=== PATIENT | male | born 1955 | race Caucasian/White ===

== ENCOUNTER 2019-09-02 05:55 | Observation (INO) ==
[2019-09-02] MEDS ORDERED: LISINOPRIL 40 MG TAB PO STA (06:26)
[2019-09-02] MEDS ORDERED: ASPIRIN 81 MG CHEW PO STA (06:26)
[2019-09-02] MEDS ORDERED: AMLODIPINE BESYLATE 5 MG TAB PO ONE (06:26)
[2019-09-02] MEDS ORDERED: NITROGLYCERIN SL 0.4 MG/TAB TAB SL PRN (06:38)
--- NOTE | 2019-09-02 06:52 | XRay Report ---
XR chest 1V portable CLINICAL HISTORY: Atypical chest pain COMPARISON STUDY: 08/02/2014 FINDINGS: The cardiac and mediastinal contours are normal. There is no evidence of focal pulmonary co nsolidation. There is no evidence of failure. No pleural effusions are visualized.[ IMPRESSION: No active disease in the chest. Electronically signed by: Dominick Bobby M.D. 09/02/2019 6:50 AM
[2019-09-02 07:02] LABS: Basophils # (auto) 0.01 K/uL (0-0.2); Basophils % (auto) 0.2 %; Eosinophils # (auto) 0.07 K/uL (0-0.5); Eosinophils % (auto) 1.4 %; Hematocrit (blood only) 43.7 % (42-52); Hemoglobin 14.8 g/dL (14.0-18.0); Immature Granulocytes # (auto) 0.02 K/uL (0.00-0.02); Immature Granulocytes % (auto) 0.4 %; Lymphocytes # (auto) 0.71 K/uL (1.2-3.4); Lymphocytes % (auto) 13.7 %; Mean Corpuscular Hemoglobin 31.3 pg (25-34); Mean Corpuscular Hgb Conc 33.9 g/dL (32-36); Mean Corpuscular Volume 92.4 fL (80-100); Mean Platelet Volume 10.4 fL (7.4-10.4); Monocytes # (auto) 0.46 K/uL (0.11-0.59); Monocytes % (auto) 8.9 %; Neutrophils # (auto) 3.91 K/uL (1.4-6.5); Neutrophils % (auto) 75.4 %; Platelet Count 240 K/uL (130-400); RDW Coefficient of Variation 13.1 % (11.5-14.5); RDW Standard Deviation 44.1 fL (36.4-46.3); Red Blood Count 4.73 M/uL (4.7-6.1); White Blood Count 5.18 K/uL (4.8-10.8)
[2019-09-02 07:19] LABS: Alanine Aminotransferase 29 U/L (12-78); Albumin Level 3.9 gm/dl (3.4-5.0); Aspartate Aminotransferase 16 U/L (15-37); BUN Creatinine Ratio 20.3 (10-20); Blood Urea Nitrogen 17 mg/dl (7-18); Calcium 8.8 mg/dl (8.5-10.1); Carbon Dioxide 28 mmol/L (21-32); Chloride 105 mmol/L (98-107); Creatinine Clr Calc Pharmacy 99.2 ml/min; Est GFR (African American) 108.3; Est GFR (Non-African American) 93.5; Glucose 90 mg/dl (70-99); Lipase 134 U/L (73-393); Potassium 3.6 mmol/L (3.5-5.1); Sodium 138 mmol/L (136-145)
[2019-09-02 07:24] LABS: Alkaline Phosphatase 66 U/L (45-117); Bilirubin,Total 0.5 mg/dl (0.2-1); Creatine Kinase 169 U/L (39-308); Creatine Kinase MB 6.6 ng/ml (0.5-3.6); Globulin 3.9 gm/dl (2.5-4.0); Total Protein 7.8 gm/dl (6.4-8.2); Troponin I < 0.015 ng/ml (0-0.045)
--- NOTE | 2019-09-02 07:53 | Emergency Department Note ---
General (ED) Blank Date of Service September 02, 2019 I attest that attended to the care of this patient in conjunction with Dr. Michel and agree with the assessment and plan in their note. Resident Activity Tracking Resident Involvement: Resident Care Provided Care Provided: Adult ED
--- NOTE | 2019-09-02 08:15 | History & Physical Report ---
Date of Service September 02, 2019 Assessment & Plan (1) Chest pain: New onset chest pain today while performing light activity. Chest pain relieved by nitroglycerin. No acute EKG changes. First troponin normal. Multiple risk factors for ischemic heart disease- hypertension, dyslipidemia, prediabetes. Check repeat troponin in 6 hours. Continue aspirin. Discuss evaluation further with Cardiology. (2) Hypertension: Hypertension treated with amlodipine and lisinopril. Initial blood pressure in ED was 179/84. Patient received his morning doses of amlodipine and lisinopril in the ED. Follow and titrate therapy as necessary. (3) Dyslipidemia: Check fasting lipid profile. Continue atorvastatin. (4) Prediabetes: History of prediabetes. Fasting glucose this morning 90. Follow. (5) DVT prophylaxis: Patient is low risk for VTE per IMPROVE Risk Assessment Model (risk less than 1.5%). VTE prophylaxis, therefore, is not indicated. Ambulate. (6) Discharge planning issues: Anticipated discharge to home. Family Medicine follow-up with Dr. Annamaria Mae. History of Present Illness Primary Care Provider: Annamaria Rudolph DO 63-year-old male followed by Dr. Annamaria Rudolph for Family Medicine. History of hypertension, dyslipidemia, and prediabetes. Upon awakening this morning at 4 AM he felt a little bit weak and lightheaded. He proceeded with his morning routine, including doing some chores in the barn. Developed some left-sided chest pain while doing his chores. Pain described as a tightness that did not radiate. Intensity rated as 1/10. No associated dyspnea, diaphoresis, nausea, vomiting. The chest pain persisted, so he came to the ED for evaluation. In the ED he received 1 dose of sublingual nitroglycerin with relief of symptoms in about 10 minutes. Pain-free at time of my assessment. Blood pressures were elevated in the ED, so he received his usual morning doses of amlodipine and lisinopril. Patient is physically active and before today never had any chest pain or dyspnea associated with exertion. Risk factors for ischemic heart disease include hypertension, dyslipidemia, prediabetes. He is a non-smoker. No family history of early coronary disease. Allergies Allergy/AdvReac Type Severity Reaction Status Date / Time No Known Allergies Allergy Unverified 09/02/19 06:22 Home Medications Home Medications Medication Instructions Recorded Confirmed Type amlodipine 10 mg PO DAILY 09/02/19 09/02/19 History aspirin 81 mg PO DAILY 09/02/19 09/02/19 History atorvastatin 20 mg PO DAILY 09/02/19 09/02/19 History lisinopril 40 mg PO DAILY 09/02/19 09/02/19 History Past Med/Surg History Medical History Diverticular disease of colon (Chronic) Colon polyp (Chronic) adenomatous Dyslipidemia (Chronic) Prediabetes (Chronic) Hypertension (Chronic) HTN (hypertension) (Chronic) Lumbar contusion (Acute) Renal colic on left side (Acute) 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) Uvulitis (Acute) Uvulitis (Acute) Surgical History Status post inguinal hernia repair (Chronic) Status post right knee replacement (Chronic) Family History Father Colorectal cancer Social History Preferred Language: Kenyan Communication Ability: Effective Needle Grader Required: No Beliefs That Will Affect Care: None Current Living Situation: Spouse Other Information That Helps Us Care for You: No Feels Safe at Home: Yes Safety Concerns: Feels Safe At This Time Smoking Status: Never smoker Hx Alcohol Use: No Hx Substance Use: No Review of Systems Constitutional: no fever and no weight loss Eyes: no diplopia and no worsening vision Ear, Nose, Mouth, Throat: no nasal congestion, no sinus pain/pressure and no sore throat Respiratory: no cough and no dyspnea Cardiovascular: as per Subjective / HPI Gastrointestinal: no nausea, no vomiting, no constipation, no diarrhea/loose stools, no blood in stools and no melena Musculoskeletal: + joint pain (knee) Integumentary: no rash and no new lesions Neurologic: no headache(s) Endocrine: no polydipsia and no polyuria Hematologic / Lymphatic: + easy bruising; no easy bleeding and no lymphadenopathy Physical Exam Constitutional: WD/WN, vitals as above no acute distress Eyes: PERRL, conjunctivae normal, anicteric sclerae ENMT: external ear and nose normal, oropharynx normal Neck: trachea midline, no thyromegaly Respiratory: normal respiratory effort, lungs clear to auscultation Cardiovascular: Rate/Rhythm: regular rate Heart Sounds: + gallop (s4) and + murmur (I/ sys murmur at base); no cardiac rub Vessels: normal peripheral pulses and normal carotid upstroke; no JVD Extremities: normal capillary refill; no calf tenderness and no edema Gastrointestinal (Abdomen): normal bowel sounds, soft, nontender, no hepatosplenomegaly Musculoskeletal: Head/Neck/Chest: neck supple Extremities: strength 5/5 throughout; no cyanosis and no clubbing Skin: no rashes, warm and dry Neurologic: PERRL, EOMI no facial palsy no dysarthria or aphasia patellar DTR's 2/2 bilat Psychiatric: Orientation: alert and oriented x 3 Affect: euthymic affect Lymphatic: no cervical lymphadenopathy Results & Data Vital Signs (Past 12 Hours) Vital Signs Temp Pulse Pulse Resp BP BP Pulse Ox 09/02/19 07:27 65 20 124/71 95 09/02/19 06:53 73 18 171/83 H 97 09/02/19 06:01 36.8 C 83 16 179/84 H 99 Laboratory Results Laboratory Results - last 24 hr 09/02/19 09/02/19 09/02/19 06:31 06:43 06:43 WBC 5.18 RBC 4.73 Hgb 14.8 Hct 43.7 MCV 92.4 MCH 31.3 MCHC 33.9 RDW Std Deviation 44.1 RDW Coeff of Kusum 13.1 Plt Count 240 MPV 10.4 Immature Gran % (Auto) 0.4 Neut % (Auto) 75.4 Lymph % (Auto) 13.7 [place] % (Auto) 8.9 Eos % (Auto) 1.4 Baso % (Auto) 0.2 Immature Gran # (Auto) 0.02 Neut # (Auto) 3.91 Lymph # (Auto) 0.71 L [place] # (Auto) 0.46 Eos # (Auto) 0.07 Baso # (Auto) 0.01 Sodium 138 Potassium 3.6 Chloride 105 Carbon Dioxide 28 Anion Gap 5.0 BUN 17 Creatinine 0.82 Est Cr Clr Drug Dosing 99.2 Est GFR ( Amer) 108.3 Est GFR (Non-Af Amer) 93.5 BUN/Creatinine Ratio 20.3 H Glucose 90 POC Glucose 111 H Calcium 8.8 Total Bilirubin 0.5 AST 16 ALT 29 Alkaline Phosphatase 66 Total Creatine Kinase 169 CK-MB (CK-2) 6.6 H CK/CKMB % Calc 3.9 H Troponin I < 0.015 Total Protein 7.8 Albumin 3.9 Globulin 3.9 Albumin/Globulin Ratio 1.0 Lipase 134 Diagnostic Findings Chest x-ray reviewed by the undersigned and formally interpreted by Radiology. No cardiomegaly, infiltrates, effusions, CHF. ECG Additional Comments: EKG performed at 0637 reviewed and demonstrated normal sinus rhythm at 70/minute, intraventricular conduction delay, no acute changes. Code Status & VTE Plan Code Status Full code. VTE Prophylaxis Plan VTE Prophylaxis will be ordered: No Reason for no VTE drug order: Treatment not indicated Reason for no VTE mechanical prophylaxis: Treatment not tolerated
[2019-09-02] MEDS ORDERED: ACETAMINOPHEN 325 MG TAB PO PRN (08:59)
[2019-09-02 10:06] LABS: Chol HDL Ratio 2; Cholesterol 128 mg/dl (0-200); HDL Cholesterol 55 mg/dl; LDL Cholesterol Calculated 64 mg/dl; Triglycerides 47 mg/dl (0-150); VLDL Cholesterol 9 mg/dl
[2019-09-02] MEDS ORDERED: CARVEDILOL 3.125 MG TAB PO ONE (13:51)
--- NOTE | 2019-09-02 14:34 | Emergency Department Note ---
Entered by Chad Chaparro acting as a scribe for History of Present Illness General Chief complaint: Headache Stated complaint: HEADACHE,FEEL HOT,DIZZY Time Seen by Provider: 09/02/19 06:26 Source: patient History of Present Illness Provider complaint: Dizziness Onset (ago): hour(s) (This morning) Location: head Radiation: non-radiation Pain Consistency: + other (Episodic) Maximum Pain Intensity: 1 Current Pain Intensity: 1 Associated symptoms: + chest pain and + nausea/vomiting (No vomiting); no fever/chills and no shortness of breath The patient is a 63 year old male who presents to the Emergency Room with complaints of an episode of dizziness that occurred this morning around 04:00. The patient states he also had a mild headache at the time that he rates a 1/10. The patient adds that he then became anxious and developed a slight left sided chest discomfort that does not radiates anywhere. The patient adds that nothing makes the patient better or worse. The patient also endorses some intermittent nausea. Currently the patient is no longer dizzy but still has a very mild headache and chest pain. The patient denies any neck pain, fevers, chills, or shortness of breath. The patient recalls that he took all of his blood pressure medications this morning. Home Medications Home Medications Medication Instructions Recorded Confirmed Type amlodipine 10 mg PO DAILY 09/02/19 09/02/19 History aspirin 81 mg PO DAILY 09/02/19 09/02/19 History atorvastatin 20 mg PO DAILY 09/02/19 09/02/19 History lisinopril 40 mg PO DAILY 09/02/19 09/02/19 History Allergies Allergy/AdvReac Type Severity Reaction Status Date / Time No Known Allergies Allergy Unverified 09/02/19 06:22 Past Med/Surg History Medical History Diverticular disease of colon (Chronic) Colon polyp (Chronic) adenomatous Dyslipidemia (Chronic) Prediabetes (Chronic) Hypertension (Chronic) HTN (hypertension) (Chronic) Lumbar contusion (Acute) Renal colic on left side (Acute) 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) Uvulitis (Acute) Uvulitis (Acute) Surgical History Status post inguinal hernia repair (Chronic) Status post right knee replacement (Chronic) Family History Father Colorectal cancer Social History Preferred Language: Turkish Communication Ability: Effective Shoe Stitcher Odd Required: No Beliefs That Will Affect Care: None Current Living Situation: Spouse Other Information That Helps Us Care for You: No Feels Safe at Home: Yes Safety Concerns: Feels Safe At This Time Smoking Status: Never smoker Hx Alcohol Use: No Hx Substance Use: No Review of Systems See HPI for pertinent positives & negatives. and A total of 10 systems reviewed and were otherwise negative Physical Exam Vital Signs Vital Signs - 24 hr 09/02/19 06:01 09/02/19 06:53 09/02/19 07:27 Temperature 36.8 C Temperature Source Oral Sepsis Recent Fever Within 48 Hours No Sepsis Action Taken by Nursing No Action Required Pulse Rate 83 Pulse Rate [Bilateral] 73 65 Pulse Rhythm [Bilateral] Regular Regular Pulse Strength [Bilateral] Normal Normal Respiratory Rate 16 18 20 Respiratory Effort / Characteristics Non-Labored Spontaneous Non-Labored Spontaneous Non-Labored Spontaneous Respiratory Depth Normal Normal Normal Respiratory Pattern Regular Regular Regular Blood Pressure 179/84 H Blood Pressure [Left Arm] 171/83 H 124/71 Blood Pressure Mean 115 Blood Pressure Mean [Left Arm] 112 88 Blood Pressure Position Sitting Blood Pressure Position [Left Arm] Lying Sitting Pulse Oximetry 99 97 95 Oxygen Delivery Method Room Air Room Air Room Air GENERAL: Awake, alert, well-appearing, in no distress HENT: Normocephalic, atraumatic. Oropharynx unremarkable. EYES: Normal conjunctiva. Sclera non-icteric. NECK: Supple. No nuchal rigidity. FROM. No masses. RESPIRATORY: Clear to auscultation. No wheezes. No rales. Normal respiratory effort. CARDIAC: Normal rate. Normal rhythm. No murmurs. No rubs. Extremities warm and well perfused. Pulses equal. No JVD. GI: Soft, non-distended. No tenderness to palpation. No rebound or guarding. No masses. RECTAL: Deferred. MUSCULOSKELETAL: Atraumatic. Chest examination reveals no tenderness. The back is symmetrical on inspection without obvious abnormality. There is no CVA tenderness to palpation. No joint edema. LOWER EXTREMITIES: Calves are equal size bilaterally and non-tender. No edema. No discoloration. NEURO: Normal sensorium. No sensory or motor deficits noted. Course 0620: Past medical records reviewed. The patient was evaluated in room B03B, and a complete history and physical examination were performed. 0710: I reevaluated the patient and updated on the treatment plan. He is agreeable with the plan. 0735: I spoke to Dr. Harrison Ricks Hospitalist about the patient's case. He is going to accept the patient for further evaluation. Consultations Consultation #1: I spoke to Dr. Harrison Neri about the patient's case. He is going to accept the patient for further evaluation. Time: 07:35 Administered Medications Nitroglycerin (Nitrostat) 0.4 mg SL PRN PRN PRN Reason: Chest Pain Stop: 10/02/19 06:37 Last Admin: 09/02/19 06:51 Dose: 0.4 mg Documented by: [id number] Discontinued Medications Amlodipine Besylate (Norvasc) 10 mg PO NOW ONE Stop: 09/02/19 06:27 Last Admin: 09/02/19 06:56 Dose: Not Given Documented by: [id number] Aspirin (Aspirin Chew) 81 mg PO NOW STA Stop: 09/02/19 06:27 Last Admin: 09/02/19 06:50 Dose: 81 mg Documented by: [id number] Carvedilol (Coreg) 3.125 mg PO NOW ONE Stop: 09/02/19 13:52 Last Admin: 09/02/19 14:26 Dose: 3.125 mg Documented by: [id number] Lisinopril (Zestril) 40 mg PO NOW STA Stop: 09/02/19 06:27 Last Admin: 09/02/19 06:56 Dose: Not Given Documented by: [id number] Medical Decision Making Differential Diagnosis Differential diagnoses includes but is not limited to acute coronary syndrome, myocardial infarction, pericarditis, pulmonary embolus, aortic dissection, pneum onia, pneumothorax, musculoskeletal, shingles, esophageal. Medical Records Attestation: I reviewed the patient's medical records. Home Medications Current Medication List: was personally reviewed by me Laboratory Data Attestation: I reviewed the patient's lab results. Result diagrams: 09/02/19 06:43 09/02/19 06:43 Lab Results 09/02/19 09/02/19 09/02/19 Range/Units 06:31 06:43 06:43 WBC 5.18 (4.8-10.8) K/uL RBC 4.73 (4.7-6.1) M/uL Hgb 14.8 (14.0-18.0) g/dL Hct 43.7 (42-52) % MCV 92.4 (80-100) fL MCH 31.3 (25-34) pg MCHC 33.9 (32-36) g/dL RDW Std Deviation 44.1 (36.4-46.3) fL RDW Coeff of Kusum 13.1 (11.5-14.5) % Plt Count 240 (130-400) K/uL MPV 10.4 (7.4-10.4) fL Immature Gran % (Auto) 0.4 % Neut % (Auto) 75.4 % Lymph % (Auto) 13.7 % [place] % (Auto) 8.9 % Eos % (Auto) 1.4 % Baso % (Auto) 0.2 % Immature Gran # (Auto) 0.02 (0.00-0.02) K/uL Neut # (Auto) 3.91 (1.4-6.5) K/uL Lymph # (Auto) 0.71 L (1.2-3.4) K/uL [place] # (Auto) 0.46 (0.11-0.59) K/uL Eos # (Auto) 0.07 (0-0.5) K/uL Baso # (Auto) 0.01 (0-0.2) K/uL Sodium 138 (136-145) mmol/L Potassium 3.6 (3.5-5.1) mmol/L Chloride 105 (98-107) mmol/L Carbon Dioxide 28 (21-32) mmol/L Anion Gap 5.0 (3-11) BUN 17 (7-18) mg/dl Creatinine 0.82 (0.6-1.4) mg/dl Est Cr Clr Drug Dosing 99.2 ml/min Est GFR ( Amer) 108.3 Est GFR (Non-Af Amer) 93.5 BUN/Creatinine Ratio 20.3 H (10-20) Glucose 90 (70-99) mg/dl POC Glucose 111 H (70-99) Calcium 8.8 (8.5-10.1) mg/dl Total Bilirubin 0.5 (0.2-1) mg/dl AST 16 (15-37) U/L ALT 29 (12-78) U/L Alkaline Phosphatase 66 (45-117) U/L Total Creatine Kinase 169 (39-308) U/L CK-MB (CK-2) 6.6 H (0.5-3.6) ng/ml CK/CKMB % Calc 3.9 H (0-3.0) Troponin I < 0.015 (0-0.045) ng/ml Total Protein 7.8 (6.4-8.2) gm/dl Albumin 3.9 (3.4-5.0) gm/dl Globulin 3.9 (2.5-4.0) gm/dl Albumin/Globulin Ratio 1.0 (0.9-2) Triglycerides (0-150) mg/dl Cholesterol (0-200) mg/dl LDL Cholesterol, Calc mg/dl VLDL Cholesterol, Calc mg/dl HDL Cholesterol mg/dl Cholesterol/HDL Ratio Lipase 134 (73-393) U/L 09/02/19 Range/Units 06:43 WBC (4.8-10.8) K/uL RBC (4.7-6.1) M/uL Hgb (14.0-18.0) g/dL Hct (42-52) % MCV (80-100) fL MCH (25-34) pg MCHC (32-36) g/dL RDW Std Deviation (36.4-46.3) fL RDW Coeff of Kusum (11.5-14.5) % Plt Count (130-400) K/uL MPV (7.4-10.4) fL Immature Gran % (Auto) % Neut % (Auto) % Lymph % (Auto) % [place] % (Auto) % Eos % (Auto) % Baso % (Auto) % Immature Gran # (Auto) (0.00-0.02) K/uL Neut # (Auto) (1.4-6.5) K/uL Lymph # (Auto) (1.2-3.4) K/uL [place] # (Auto) (0.11-0.59) K/uL Eos # (Auto) (0-0.5) K/uL Baso # (Auto) (0-0.2) K/uL Sodium (136-145) mmol/L Potassium (3.5-5.1) mmol/L Chloride (98-107) mmol/L Carbon Dioxide (21-32) mmol/L Anion Gap (3-11) BUN (7-18) mg/dl Creatinine (0.6-1.4) mg/dl Est Cr Clr Drug Dosing ml/min Est GFR ( Amer) Est GFR (Non-Af Amer) BUN/Creatinine Ratio (10-20) Glucose (70-99) mg/dl POC Glucose (70-99) Calcium (8.5-10.1) mg/dl Total Bilirubin (0.2-1) mg/dl AST (15-37) U/L ALT (12-78) U/L Alkaline Phosphatase (45-117) U/L Total Creatine Kinase (39-308) U/L CK-MB (CK-2) (0.5-3.6) ng/ml CK/CKMB % Calc (0-3.0) Troponin I (0-0.045) ng/ml Total Protein (6.4-8.2) gm/dl Albumin (3.4-5.0) gm/dl Globulin (2.5-4.0) gm/dl Albumin/Globulin Ratio (0.9-2) Triglycerides 47 (0-150) mg/dl Cholesterol 128 (0-200) mg/dl LDL Cholesterol, Calc 64 mg/dl VLDL Cholesterol, Calc 9 mg/dl HDL Cholesterol 55 mg/dl Cholesterol/HDL Ratio 2 Lipase (73-393) U/L Imaging Data Radiologist's Impression: Radiology results as stated below per my review and the radiologist's interpretation: XR chest 1V portable CLINICAL HISTORY: Atypical chest pain COMPARISON STUDY: 08/02/2014 FINDINGS: The cardiac and mediastinal contours are normal. There is no evidence of focal pulmonary consolidation. There is no evidence of failure. No pleural effusions are visualized.[ IMPRESSION: No active disease in the chest. Electronically signed by: Dominick Bobby M.D. 09/02/2019 6:50 AM ECG Data Attestation: I personally reviewed and interpreted this ECG as follows: Indication: + chest pain Rate (beats per minute): 74 Rhythm: + normal sinus ECG [place]: + Normal ECG ST segments: + Normal ST segments ECG Findings: + Other (QTC of 435); no PACs and no PVCs Blood Pressure Blood Pressure Findings: Elevated blood pressure Blood Pressure Disposition: further management by hospitalist VERONICA Narrative This is a 63-year-old male who presents emergency department complaining of d izziness headache and chest pain. The patient is still having chest pain upon arrival to the emergency department. He was given nitro for the pain. This resulted in the patient being pain-free. He has a normal EKG CK-MB and troponin however with the relief of the pain by the nitro I did discuss the case with the hospitalist service who agreed to admit the patient. Patient was in agreement with the treatment plan. Impression & Plan Chest pain Discharge Plan Visit Data *Final* Discharge Date/Time: 09/02/19 08:40 Chief Complaint: Headache Stated Complaint: HEADACHE,FEEL HOT,DIZZY ED Provider: Robin Michel Discharge Problem: Chest pain Patient Disposition: Admitted As Inpatient Discharge Instructions Interventions: ED Discharge Assessment Last Done: 09/02/19 08:40 The stellaibe's documentation has been prepared under my direction and personally reviewed by me in its entirety. I confirm that the note above accurately reflects all work, treatment, procedures, and medical decision making performed by me.
--- NOTE | 2019-09-02 14:52 | Cardiology Consultation ---
Date of Consultation September 02, 2019 Assessment & Plan (1) Chest pain: (2) Hypertension: (3) Dyslipidemia, goal LDL below 100: Exercise stress echo negative for inducible ischemia. Hypertensive blood pressure response to activity noted. Recommend addition of low-dose carvedilol, 3.125 mg twice daily. He will continue amlodipine and lisinopril as previously ordered. Sodium restriction advised. Outpatient cardiology follow-up in 2 to 4 weeks. Thank you for allowing to participate in the care of your patient. History of Present Illness Reason for Consultation: CP, HTN Requesting Physician: Dr. Terry Attending Physician: Jose Terry MD History of Present Illness 63-year-old patient admitted with chest pain. Patient describes feeling lightheaded this morning. 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 Reports a mild tightness in his chest which was short-lived. No recurrent chest discomfort since admission. Troponins negative x2. In general, he is an active person. Able to perform chores around his home w ithout restriction. Denies orthopnea, PND, palpitations, lightheadedness, dizziness, syncope, or near syncope. Reports elevated blood pressures recently. Scheduled for follow-up blood pressure evaluation with PCP next week. Offers no other concerns/complaints at this time. Allergies Allergy/AdvReac Type Severity Reaction Status Date / Time No Known Allergies Allergy Unverified 09/02/19 06:22 Home Medications Home Medications Medication Instructions Recorded Confirmed Type amlodipine 10 mg PO DAILY 09/02/19 09/02/19 History aspirin 81 mg PO DAILY 09/02/19 09/02/19 History atorvastatin 20 mg PO DAILY 09/02/19 09/02/19 History lisinopril 40 mg PO DAILY 09/02/19 09/02/19 History Patient History Medical History Diverticular disease of colon (Chronic) Colon polyp (Chronic) adenomatous Dyslipidemia (Chronic) Prediabetes (Chronic) Hypertension (Chronic) HTN (hypertension) (Chronic) Lumbar contusion (Acute) Renal colic on left side (Acute) 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) Uvulitis (Acute) Uvulitis (Acute) Surgical History Status post inguinal hernia repair (Chronic) Status post right knee replacement (Chronic) Family History Father Colorectal cancer Social History Preferred Language: Icelandic Communication Ability: Effective Cotton Grader Required: No Beliefs That Will Affect Care: None Current Living Situation: Spouse Other Information That Helps Us Care for You: No Feels Safe at Home: Yes Safety Concerns: Feels Safe At This Time Smoking Status: Never smoker Hx Alcohol Use: No Hx Substance Use: No Review of Systems Review of Systems: All systems reviewed & are unremarkable except as noted in HPI & below Physical Exam Physical Exam: General: NAD, AAO x3, well nourished. HEENT: Normocephalic. Atraumatic. Conjunctiva pink, no scleral icterus. Neck: No carotid bruits, the carotid upstrokes are brisk. No JVD. No HJR Heart: Regular normal S-1 and S-2 no S-3 or S-4 gallop. No murmurs or rub appreciated. PMI is not displaced. No RV heave. Lungs: Clear bilateral without rales , rhonchi, or wheeze. Abdomen: Normal bowel sounds. Soft. Nontender. No masses or organomegaly. No abdominal bruits. Extremities: No clubbing, cyanosis, or edema. Pulses: radial=2/4, Dorsalis pedis =2/4, posterior tibial=2/4. Neuro: Cranial nerves grossly intact. No focal motor deficit. Results & Data Vital Signs (Past 12 Hours) Vital Signs Temp Pulse Pulse Resp BP BP BP 09/02/19 14:29 75 150/82 H 09/02/19 11:45 36.6 C 68 18 166/80 H 09/02/19 11:18 36.6 C 66 18 156/76 H 09/02/19 09:30 69 157/75 H 09/02/19 09:02 36.6 C 77 20 188/78 H 09/02/19 08:40 77 20 176/79 H 09/02/19 07:27 65 20 124/71 09/02/19 06:53 73 18 171/83 H 09/02/19 06:01 36.8 C 83 16 179/84 H Pulse Ox 09/02/19 14:29 09/02/19 11:45 98 09/02/19 11:18 100 09/02/19 09:30 09/02/19 09:02 100 09/02/19 08:40 97 09/02/19 07:27 95 09/02/19 06:53 97 09/02/19 06:01 99 Laboratory Results Laboratory Results - last 24 hr 09/02/19 09/02/19 09/02/19 06:31 06:43 06:43 WBC 5.18 RBC 4.73 Hgb 14.8 Hct 43.7 MCV 92.4 MCH 31.3 MCHC 33.9 RDW Std Deviation 44.1 RDW Coeff of Kus[place] 13.1 Plt Count 240 MPV 10.4 Immature Gran % (Auto) 0.4 Neut % (Auto) 75.4 Lymph % (Auto) 13.7 Harmon % (Auto) 8.9 Eos % (Auto) 1.4 Baso % (Auto) 0.2 Immature Gran # (Auto) 0.02 Neut # (Auto) 3.91 Lymph # (Auto) 0.71 L Harmon # (Auto) 0.46 Eos # (Auto) 0.07 Baso # (Auto) 0.01 Sodium 138 Potassium 3.6 Chloride 105 Carbon Dioxide 28 Anion Gap 5.0 BUN 17 Creatinine 0.82 Est Cr Clr Drug Dosing 99.2 Est GFR ( Amer) 108.3 Est GFR (Non-Af Amer) 93.5 BUN/Creatinine Ratio 20.3 H Glucose 90 POC Glucose 111 H Calcium 8.8 Total Bilirubin 0.5 AST 16 ALT 29 Alkaline Phosphatase 66 Total Creatine Kinase 169 CK-MB (CK-2) 6.6 H CK/CKMB % Calc 3.9 H Troponin I < 0.015 Total Protein 7.8 Albumin 3.9 Globulin 3.9 Albumin/Globulin Ratio 1.0 Triglycerides Cholesterol LDL Cholesterol, Calc VLDL Cholesterol, Calc HDL Cholesterol Cholesterol/HDL Ratio Lipase 134 09/02/19 09/02/19 06:43 11:47 WBC RBC Hgb Hct MCV MCH MCHC RDW Std Deviation RDW Coeff of Kusum Plt Count MPV Immature Gran % (Auto) Neut % (Auto) Lymph % (Auto) Harmon % (Auto) Eos % (Auto) Baso % (Auto) Immature Gran # (Auto) Neut # (Auto) Lymph # (Auto) Harmon # (Auto) Eos # (Auto) Baso # (Auto) Sodium Potassium Chloride Carbon Dioxide Anion Gap BUN Creatinine Est Cr Clr Drug Dosing Est GFR ( Amer) Est GFR (Non-Af Amer) BUN/Creatinine Ratio Glucose POC Glucose Calcium Total Bilirubin AST ALT Alkaline Phosphatase Total Creatine Kinase CK-MB (CK-2) CK/CKMB % Calc Troponin I < 0.015 Total Protein Albumin Globulin Albumin/Globulin Ratio Triglycerides 47 Cholesterol 128 LDL Cholesterol, Calc 64 VLDL Cholesterol, Calc 9 HDL Cholesterol 55 Cholesterol/HDL Ratio 2 Lipase Diagnostic Findings Exercise stress echo negative for inducible ischemia. Normal resting LV function with mild concentric left ventricular hypertrophy. Hypertensive blood pressure response to exercise. (1) Chest pain Chest pain type: unspecified Qualified Code(s): R07.9 - Chest pain, unspecified (2) Hypertension Hypertension type: essential hypertension Qualified Code(s): I10 - Essential (primary) hypertension
[2019-09-02 15:28] VITALS: PULSE 72; TEMP 98.1; O2SAT 96
--- NOTE | 2019-09-02 16:33 | Hospitalist Progress Note ---
Date of Service September 02, 2019 Assessment & Plan (1) Chest pain: New onset chest pain today while performing light activity. Chest pain relieved by nitroglycerin. Multiple risk factors for ischemic heart disease- hypertension, dyslipidemia, prediabetes. No acute EKG changes. Troponins normal x 2. No further chest pain. No stress-induced ischemia during exercise stress echo, but study limited due to elevated BP's. Seen in consultation by Cardiology. Addition of carvedilol recommended for better blood pressure control. Continue aspirin. (2) Hypertension: Hypertension treated with amlodipine and lisinopril. Initial blood pressure in ED was 179/84. Addition of carvedilol recommended for better blood pressure control. Follow and titrate therapy as necessary. (3) Dyslipidemia: LDL-c 64. Continue atorvastatin. (4) Prediabetes: History of prediabetes. Fasting glucose 90. Follow. (5) DVT prophylaxis: Patient is low risk for VTE per IMPROVE Risk Assessment Model (risk less than 1.5%). VTE prophylaxis, therefore, not indicated. Ambulate. (6) Discharge planning issues: Discharge to home. Family Medicine follow-up with Dr. Annamaria Mae. Cardiology follow-up with Dr. Eldridge. Subjective No further chest pain. Troponins negative x 2. No stress-induced ischemia during exercise stress echo, but study limited due to elevated BP's. Seen in consultation by Cardiology. Addition of carvedilol recommended for better blood pressure control. Results & Data Vital Signs (Past 12 Hours) Vital Signs Temp Pulse Pulse Resp BP BP BP 09/02/19 15:25 36.7 C 72 18 159/83 H 09/02/19 14:29 75 150/82 H 09/02/19 11:45 36.6 C 68 18 166/80 H 09/02/19 11:18 36.6 C 66 18 156/76 H 09/02/19 09:30 69 157/75 H 09/02/19 09:02 36.6 C 77 20 188/78 H 09/02/19 08:40 77 20 176/79 H 09/02/19 07:27 65 20 124/71 09/02/19 06:53 73 18 171/83 H 09/02/19 06:01 36.8 C 83 16 179/84 H Pulse Ox 09/02/19 15:25 96 09/02/19 14:29 09/02/19 11:45 98 09/02/19 11:18 100 09/02/19 09:30 09/02/19 09:02 100 09/02/19 08:40 97 09/02/19 07:27 95 09/02/19 06:53 97 09/02/19 06:01 99 (1) Chest pain Chest pain type: unspecified Qualified Code(s): R07.9 - Chest pain, unspecified (2) Hypertension Hypertension type: essential hypertension Qualified Code(s): I10 - Essential (primary) hypertension
[2019-09-02 16:37] VITALS: BP 166/80
[2019-09-02] MEDS ORDERED: CARVEDILOL 3.125 MG TAB PO SCH (21:00)
[2019-09-03] MEDS ORDERED: ASPIRIN 81 MG ECTAB PO SCH (09:00)
[2019-09-03] MEDS ORDERED: ATORVASTATIN 20 MG TAB PO SCH (09:00)
[2019-09-03] MEDS ORDERED: LISINOPRIL 40 MG TAB PO SCH (09:00)
[2019-09-03] MEDS ORDERED: AMLODIPINE BESYLATE 5 MG TAB PO SCH (09:00)
--- NOTE | 2019-09-03 16:12 | Discharge Summary ---
Date of Service Date of Admission: 09/02/19 Date of Discharge: 09/02/19 Admission HPI Per Admitting Provider 63-year-old male followed by Dr. Annamaria Rudolph for Family Medicine. History of hypertension, dyslipidemia, and prediabetes. Upon awakening this morning at 4 AM he felt a little bit weak and lightheaded. He proceeded with his morning routine, including doing some chores in the barn. Developed some left-sided chest pain while doing his chores. Pain described as a tightness that did not radiate. Intensity rated as 1/10. No associated dyspnea, diaphoresis, nausea, vomiting. The chest pain persisted, so he came to the ED for evaluation. In the ED he received 1 dose of sublingual nitroglycerin with relief of symptoms in about 10 minutes. Pain-free at time of my assessment. Blood pressures were elevated in the ED, so he received his usual morning doses of amlodipine and lisinopril. Patient is physically active and before today never had any chest pain or dyspnea associated with exertion. Risk factors for ischemic heart disease include hypertension, dyslipidemia, p rediabetes. He is a non-smoker. No family history of early coronary disease. Principal Diagnosis chest pain- [place] ruled out hypertension, not well-controlled Discharge Data Allergies Allergy/AdvReac Type Severity Reaction Status Date / Time No Known Allergies Allergy Unverified 09/02/19 06:22 Consultations 09/02/19 07:36 ED Decision to Admit Stat 09/02/19 13:41 Consult Cardiology Routine Hospital Course (1) Chest pain: New onset chest pain today while performing light activity. Chest pain relieved by nitroglycerin. Multiple risk factors for ischemic heart disease- hypertension, dyslipidemia, prediabetes. No acute EKG changes. Troponins normal x 2. No further chest pain. No stress-induced ischemia during exercise stress echo, but study limited due to elevated BP's. Seen in consultation by Cardiology. Addition of carvedilol recommended for better blood pressure control. Continue aspirin. (2) Hypertension: Hypertension treated with amlodipine and lisinopril. Initial blood pressure in ED was 179/84. Addition of carvedilol recommended for better blood pressure control. Follow and titrate therapy as necessary. (3) Dyslipidemia: LDL-c 64. Continue atorvastatin. (4) Prediabetes: History of prediabetes. Fasting glucose 90. Follow. (5) DVT prophylaxis: Patient is low risk for VTE per IMPROVE Risk Assessment Model (risk less than 1.5%). VTE prophylaxis, therefore, not indicated. Ambulate. (6) Discharge planning issues: Discharged to home. Family Medicine follow-up with Dr. Annamaria Mae. Cardiology follow-up with Dr. Eldridge. Total Time Total Time Spent Total Time Spent (In Minutes): 20 Discharge Plan Discharge Items Patient Disposition: Home - Self-Care Reason For Visit: CHEST PAIN Discharge Diagnosis: chest pain- no sign of heart attack high blood pressure Condition on Discharge: Good Activity: Resume your previous activity Non-emergency contact: Primary Care Provider, Hospitalist and Wire Twisting Machine Operator Call non-emergency contact if: you have any medication questions and your symptoms worsen Follow-up/Referrals: Otis Eldridge DO [Wire Twisting Machine Operator] - (Office will contact you with follow-up appointment.) Annamaria Rudolph DO [Primary Care Provider] - (09/09/2019 1:30 PM Annamaria Rudolph DO) Diet: Heart Healthy Addtl Attending Provider Instructions: MEDICATION CHANGES: Start carvedilol (Coreg) 0.125 mg twice a day for better control of blood pressure. SUMMARY OF TEST RESULTS: No sign of damage to the heart. LDL cholesterol (bad cholesterol) level was 64. This is a good #. Continue low cholesterol diet and cholesterol medicine. Blood sugar was 90. Stress test went well. No sign of any severe blockage in coronary arteries. OTHER INSTRUCTIONS: Seek medical attention if you have: * temperature above 101 * chest pain or trouble breathing * abdominal pain, nausea, vomiting * diarrhea, dark stools or bloody stools * any unanswered questions or concerns Call 911 if symptoms are severe. Please take good care of yourself. Call if you have any questions or problems. You can reach a [facility] hospitalist on duty at [facility] 24 hours a day by calling [phone]. My cell # is [phone]. Pending Studies at Discharge: No Stand-Alone Forms: My [facility], Work/School Release (Inpt), Smoking Cessation Medications and DC Order Prescriptions: New carvedilol 3.125 mg tablet 3.125 mg PO BID Qty: 60 RF: 5 Continued amlodipine 10 mg Tablet 10 mg PO DAILY RF: 0 atorvastatin 20 mg Tablet 20 mg PO DAILY RF: 0 lisinopril 40 mg Tablet 40 mg PO DAILY RF: 0 aspirin 81 mg Tablet,Delayed Release (Dr/Ec) 81 mg PO DAILY RF: 0 Discharge Orders: Discharge Order (Routine); Ordered 09/02/19 Ordered By: Jose Terry Admission Data Admit Date/Time: 09/02/19 08:23 Attending Provider: Jose Terry Admit Provider: Jose Terry Primary Care Provider: Annamaria Rudolph Other Providers: Jose Terry ; Otis Eldridge Other Interventions: Discharge Summary Assessment (RN) Last Done: 09/02/19 16:35 DC Date/Time DO NOT enter until pt leaves facility: 09/02/19 17:13
== END 2019-09-02 17:13 | disposition home or self-care (01) ==
LOC: 2S 05:55 → ED 05:55 → 2S 08:40

== ENCOUNTER 2020-09-17 09:50 | Observation (INO) ==
--- NOTE | 2020-08-20 10:40 | PAT Medication Instructions ---
Medication Instructions Date of Service August 20, 2020 Home Medications Medication Instructions Recorded carvedilol 3.125 mg PO BID #60 tab 09/02/19 Medications amlodipine 10 mg PO QAM 09/02/19 [History Confirmed 08/18/20] aspirin 81 mg PO QAM 09/02/19 [History Confirmed 08/18/20] atorvastatin 20 mg PO QAM 09/02/19 [History Confirmed 08/18/20] carvedilol 3.125 mg PO BID #60 tab 09/02/19 [Rx Confirmed 08/18/20] lisinopril 40 mg PO QAM 09/02/19 [History Confirmed 08/18/20] multivitamin 1 tab PO QAM 08/18/20 [History Confirmed 08/18/20] DO NOT take the morning of surgery lisinopril 40 mg PO QAM multivitamin 1 tab PO QAM Take morning of surgery With a small sip of water, OTHERWISE NOTHING TO EAT OR DRINK AFTER MIDNIGHT: amlodipine 10 mg PO QAM aspirin 81 mg PO QAM atorvastatin 20 mg PO QAM carvedilol 3.125 mg PO BID Take evening before surgery carvedilol 3.125 mg PO BID Other Notes If you have any questions please call us at [phone] or [phone] or [phone] or [phone]
--- NOTE | 2020-08-23 15:18 | Anesthesiology Consultation ---
Date of Service August 23, 2020 Assessment & Plan (1) Encounter for pre-operative examination: - Per assessment on 08/23: Travel screen negative. No known COVID-19 positive contacts or current COVID-19 related symptoms. Surgeon arranging preop COVID testing. Awaiting results. - Cardiology office visit: 12/22/19: Patient seen for follow-up of hypertension and dyslipidemia. Functional capacity is stable. BP meds dosing adjusted (carvedilol dose increased, continued on amlodipine/lisinopril. "Average home systolic blood pressure readings range from 140 to 150 mmHg.. Consider addition of diuretic therapy in the future. Therapeutic lifestyle changes recommended including weight loss, dietary improvements, sodium restriction, and participation in a regular aerobic exercise program. Patient will monitor home blood pressure 2 days per week." Chart Review Chart Review: Acceptable Risk for Surgery and Patient seen in Pre Admission Testing Teaching & Discussion Pre-Anesthesia Teaching/Discussion Notes: Instructed NPO after midnight before surgery,except medications with 15 cc of water. Medication instructions provided according to the PAT guidelines. History Surgery Operation Date: 09/17/20 12:05 Proposed Procedures p Left Total Knee Arthroplasty - Keenan Marmolejo, Height/Weight Height: 5 ft 8.5 in Weight: 95.8 kg Allergies Allergy/AdvReac Type Severity Reaction Status Date / Time No Known Allergies Allergy Verified 08/18/20 12:08 Medications Home Medications Medication Instructions Recorded Confirmed Last Taken amlodipine 10 mg PO QAM 09/02/19 08/18/20 Unknown aspirin 81 mg PO QAM 09/02/19 08/18/20 Unknown atorvastatin 20 mg PO QAM 09/02/19 08/18/20 Unknown carvedilol 3.125 mg PO BID #60 tab 09/02/19 08/18/20 Unknown lisinopril 40 mg PO QAM 09/02/19 08/18/20 Unknown multivitamin 1 tab PO QAM 08/18/20 08/18/20 Unknown Past Medical History Medical History Diverticular disease of colon Dyslipidemia Hypertension Left knee DJD Prediabetes Right knee DJD Exercise / Class Metabolic Activity II 4-5 Yardwork/Stairs/Walk up hill Past Family History Family History Father Colorectal cancer Past Surgical History Surgical History History of colonoscopy x3 Status post inguinal hernia repair Status post right knee replacement Past Anesthesia History No Hx of Anesthesia Complications and No Family Hx of Anesthesia Complications History of PONV No Hx of PONV and No Hx of Motion Sickness Social History Smoking Status: Never smoker Do You Dip or Chew Tobacco: No Hx Alcohol Use: Yes Alcohol type: wine alcohol intake frequency: holidays/special occasions only Hx Substance Use: No Review of Systems Patient denies chest pain, shortness of breath, dyspnea on exertion, fever, chills, cough, wheezing, palpitations. Physical Exam Vital Signs VITALS BP 147/83 P 57 TEMP 98.3 SP02 97%RA RESP 16 PHYSICAL Full neck and c-spine range of motion. Full TMJ range of motion. TMD 3 finger breaths Mallampati Score 1 Dentition: missing molars Lungs: clear throughout to auscultation Cardiac: regular rate and rhythm, no murmurs noted Spine: normal Carotid arteries: negative bruit Extremities: no edema Testing Laboratory Results 08/23/20 15:32 08/23/20 15:32 PT 10.6 Seconds (9.0-12.0) 08/23/20 15:32 INR 1.0 (0.9-1.1) 08/23/20 15:32 APTT 27.3 Seconds (21.0-31.0) 08/23/20 15:32 Blood Type A Negative 08/23/20 15:32 Antibody Screen NEGATIVE 08/23/20 15:32 Electrocardiogram Date: 08/23/20 Findings: + SB @ (56) Chest X-Ray Date: 08/23/20 FINDINGS: Cardiomediastinal and hilar silhouettes are within normal limits. Calcified plaque of the thoracic aortic arch. There is no pneumothorax, pleural effusion, airspace consolidation or overt pulmonary edema. Degenerative changes of the shoulders and spine. IMPRESSION: No acute process. Stress Test Date: 09/02/19 Type: exercise Stress echo negative for inducible ischemia. Exercise terminated d/t elevated BP. LVEF 60-65%. Mild cLVH. Mild TN. 7.00 METS. 85% MPHR.
--- NOTE | 2020-08-23 16:21 | XRay Report ---
XR chest Pre-admission PA/Lat HISTORY: 64 years-old Male pat preoperative exam. No acute chest complaints COMPARISON: Chest radiograph 09/02/2019 TECHNIQUE: PA and lateral views of the chest FINDINGS: Cardiomediastinal and hilar silhouettes are within normal limits. Calcified plaque of the thoracic ao rtic arch. There is no pneumothorax, pleural effusion, airspace consolidation or overt pulmonary muriel a. Degenerative changes of the shoulders and spine. IMPRESSION: No acute process. ACT 112: Negative or not required by law. The above report was generated using voice recognition software. It may contain grammatical, syntax o r spelling errors. Electronically signed by: Anirudh Montgomery M.D. 08/23/2020 4:19 PM
[2020-08-23 17:11] LABS: Basophils # (auto) 0.02 K/uL (0-0.2); Basophils % (auto) 0.4 %; Eosinophils % (auto) 3.8 %; Hemoglobin 14.3 g/dL (14.0-18.0); Immature Granulocytes # (auto) 0.02 K/uL (0.00-0.02); Immature Granulocytes % (auto) 0.4 %; Lymphocytes # (auto) 1.32 K/uL (1.2-3.4); Lymphocytes % (auto) 25.1 %; Mean Corpuscular Hemoglobin 31.8 pg (25-34); Mean Corpuscular Volume 93.3 fL (80-100); Mean Platelet Volume 10.8 fL (7.4-10.4); Monocytes # (auto) 0.54 K/uL (0.11-0.59); Monocytes % (auto) 10.3 %; Neutrophils # (auto) 3.16 K/uL (1.4-6.5); Platelet Count 238 K/uL (130-400); RDW Coefficient of Variation 13.2 % (11.5-14.5); RDW Standard Deviation 45.2 fL (36.4-46.3); White Blood Count 5.26 K/uL (4.8-10.8)
[2020-08-23 17:18] LABS: BUN Creatinine Ratio 29.2 (10-20); Calcium 8.8 mg/dl (8.5-10.1); Creatinine Clr Calc Pharmacy 93.7 ml/min; Est GFR (Non-African American) 89.7; Potassium 4.1 mmol/L (3.5-5.1)
[2020-08-23 17:24] LABS: Partial Thromboplastin Time 27.3 Seconds (21.0-31.0); Prothrombin Time 10.6 Seconds (9.0-12.0)
--- NOTE | 2020-08-24 05:38 | Electrocardiogram Report ---
Test Reason : Blood Pressure : / mmHG Vent. Rate : 056 BPM Atrial Rate : 056 BPM P-R Int : 174 ms QRS Dur : 100 ms QT Int : 422 ms P-R-T Axes : 055 067 057 degrees QTc Int : 407 ms Sinus bradycardia Otherwise normal ECG When compared with ECG of 02-SEP-2019 06:37, No significant change was found Confirmed by Sy Nelson ([id number]) on 08/24/2020 5:37:37 AM Referred By: Keenan Marmolejo Confirmed By:yS Nelson
--- NOTE | 2020-09-16 11:41 | History & Physical Report ---
Date of Service September 16, 2020 Assessment & Plan (1) Left knee DJD: We will proceed with a left total knee arthroplasty. Postoperatively he will be started on aspirin for DVT prophylaxis and kept overnight in the hospital for postoperative medical management. He plans to do outpatient ph ysical therapy in [place] upon discharge. Present on Admission?: Yes History of Present Illness Chief Complaint: Primary osteoarthritis of the left knee Primary Care Provider: Annamaria Rudolph DO [place] is a pleasant 64-year-old male who is been dealing with chronic increasing left knee pain. X-rays and clinical examination have been diagnostic for advanced osteoarthritis of the left knee. After failing conservative treatment, he has elected proceed with a left total knee arthroplasty. He does have a history of a right knee replacement done in 2013 and has done well with that. Allergies Allergy/AdvReac Type Severity Reaction Status Date / Time No Known Allergies Allergy Verified 08/18/20 12:08 Home Medications Medication Instructions Recorded Confirmed Type amlodipine 10 mg PO QAM 09/02/19 08/18/20 History aspirin 81 mg PO QAM 09/02/19 08/18/20 History atorvastatin 20 mg PO QAM 09/02/19 08/18/20 History carvedilol 3.125 mg PO BID #60 tab 09/02/19 08/18/20 Rx lisinopril 40 mg PO QAM 09/02/19 08/18/20 History multivitamin 1 tab PO QAM 08/18/20 08/18/20 History Past Med/Surg History Medical History Diverticular disease of colon Dyslipidemia Hypertension Left knee DJD Prediabetes Right knee DJD Surgical History History of colonoscopy x3 Status post inguinal hernia repair Status post right knee replacement Family History Father Colorectal cancer Social History Smoking Status: Never smoker Second Hand Exposure: Yes ( A CHILD-PARENTS); Hx Alcohol Use: Yes Alcohol type: wine Hx Substance Use: No Preferred Language: Albanian Communication Ability: Effective Resource Room Teacher Required: No Beliefs That Will Affect Care: None Current Living Situation: Spouse Feels Safe at Home: Yes Assistive Devices: Glasses Review of Systems Review of Systems: All systems reviewed & are unremarkable except as noted in HPI & below Physical Exam Constitutional: WD/WN, vitals as above Eyes: PERRL, conjunctivae normal, anicteric sclerae ENMT: external ear and nose normal, oropharynx normal Neck: trachea midline, no thyromegaly Respiratory: normal respiratory effort Cardiovascular: RRR, no murmur, no edema Gastrointestinal (Abdomen): normal bowel sounds, soft, nontender, no hepatosplenomegaly Musculoskeletal: On physical examination of the left knee there is a trace effusion. There is near full range of motion and no evidence of instability. There is significant tenderness palpation along the medial and lateral joint lines and over the distal femoral condyles. Psychiatric: A+Ox3, euthymic affect Results & Data Results & Data ([facility]) Diagnostic Findings Radiographs of the left knee demonstrate advanced osteoarthritis with joint space narrowing osteophyte formation and [id number] articulation. PG Care Time/CCT Total # of Minutes Spent Total Time Spent with Patient: Total time spent is greater than 50% in coordina tion of care (as documented) at patient's floor/unit and/or counseling patient: Coding Level of Care Code None Diagnoses Left knee DJD M17.12
--- NOTE | 2020-09-17 09:41 | History & Physical Bridge Note ---
Date of Service September 17, 2020 History & Physical Bridge Note I have examined the patient, reviewed the History & Physical and in the interval since the performance of the History & Physical I have noted the following changes of clinical significance: no changes noted
[~2020-09-17 09:50] MED LIST: ACETAMINOPHEN 500 MG TAB PO SCH; BUPIVACAINE 0.25% 30 ML VIAL ONE; BUPIVACAINE 0.5 % 5 MG/1 ML PF 10ML VIAL ONE; FAMOTIDINE 20 MG TAB PO SCH; GABAPENTIN 300 MG CAP PO SCH; LACTATED RINGER'S 1,000 ML IV SCH; LR 500ML BOLUS, THEN 15ML/HR IV SCH; ROPIVACAINE 0.5% HCL/PF 150 MG, BUPIVACAINE 0.75% MPF 20 ML, EPINEPHrine 30MG/30ML (OR ... INFIL SCH; TRANEXAMIC ACID 1,000 MG **IV Intra-op IV SCH; TRANEXAMIC ACID 1,000 MG **IV Pre-op IV SCH; ceFAZolin 2000MG 2,000 MG/15 ML SYR IV SCH; dexAMETHasone 4 MG TAB PO SCH
[2020-09-17] MEDS ORDERED: PROPOFOL IV EMULSION 10 MG/ML 20 ML VIAL IV ONE ×2 (10:20→10:21)
[2020-09-17] MEDS ORDERED: fentaNYL citrate 100 MCG/2 ML VIAL ONE (10:20)
[2020-09-17] MEDS ORDERED: MIDAZOLAM HCL 1 MG/ML 2ML VIAL ONE (10:20)
[2020-09-17] MEDS ORDERED: LIDOCAINE HCL 2% 2 ML VIAL/AMP(20MG/ML) INFIL ONE (10:20)
[2020-09-17] MEDS ORDERED: ORTHO JOINT ANESTHETIC ONE (11:23)
[2020-09-17] MEDS ORDERED: KETAMINE 50 MG/5 ML SYRINGE ONE (11:54)
--- NOTE | 2020-09-17 13:28 | Operative Report ---
PG Post Operative Report Pre & Post Diagnosis Operation Date: 09/17/20 12:05 Pre-Op Diagnosis: Left Knee Degenerative Joint Disease Post-Op Diagnosis: Left Knee Degenerative Joint Disease I identified the patient and participated in the time-out.: Yes Procedure Operation Date: 09/17/20 12:05 Actual Procedures p Left Total Knee Arthroplasty, Cemented(Left) - Keenan Marmolejo DO Surgeon Keenan Marmolejo DO Inclusion Internship Keenan Chatman PAC Estimated Blood Loss 10 Findings Consistent with Post-Op Diagnosis Specimens Left femoral and tibial bone Complications none Disposition Disposition: Recovery Room Indications Lowell is a pleasant 64-year-old male who is been dealing with chronic increasing left knee pain. X-rays and clinical examination have been diagnostic for advanced osteoarthritis of the left knee. After failing conservative treatment, he elected proceed with a left total knee arthroplasty. He does have a history of a right knee replacement done in 2013 and has done well with that. Description of Procedure Implants used: I used a [employer]guard total knee arthroplasty system with a size 70 femur, 79 tibia, 35 patella, and a size 14 PS plus polyethylene bearing. All components were cemented in place with Palacos G cement. Lowell arrived [facility] for the above procedure. He was seen in the preoperative holding area and the operative extremity was identified and signed. He was given a preoperative antibiotic, TXA, a spinal anesthetic and an adductor nerve block. He was taken back to the operating room and laid on the table in supine position. He was given basic sedation. The operative knee was then prepped and draped in sterile fashion. A timeout was done, and the patient and the operative extremity was properly identified. A midline incision was made directly over the patella. Dissection was taken down to the extensor mechanism. A subvastus arthrotomy was used. The medial retinaculum was released and the fat pad was mostly excised. The knee was flexed and the ACL, PCL, and meniscus were removed. A drill was sent down the center of the femoral canal followed by an intramedullary se. Off that se a distal femoral cutting block was placed. 9 mm was resected off the distal femur at 5 of valgus. A posterior referencing AP sizing guide was then placed on the distal femur. The femur measured to be a size 70. 2 drill holes were placed in 3 of external rotation. A 4-in-1 cutting block was then impacted into place. Anterior, posterior, and chamfer cuts were then made. The posterior stabilizing box guide was then impacted into place and the box was resected for the posterior stabilizing component. The proximal tibia was then exposed. A drill was sent down the center of the tibial canal followed by an intramedullary se. Off that se a proximal tibial resection guide was placed. The proximal tibia was then resected. The tibia measured to be a size 79. The tibial plate was then placed in the appropriate rotation and the tibia was punched. The posterior aspect of the knee was then opened up and any additional meniscus fragments and osteophytes were removed. Trial components were then placed. I used a size 14 PS plus polyethylene insert. The knee was brought through a full range of motion and felt to be stable. The patella was then everted and 8 mm was resected off the posterior aspect of the patella. The patella measured to be a size 35. 3 peg holes were then drilled. A trial patella was placed. The knee was once again brought through a full range of motion and felt to be stable. Trial components were then removed. The surrounding soft tissues were injected with 100 cc of an orthopedic pain control cocktail. All components were then cemented into place with Palacos G cement. The final polyethylene insert was then snapped into place and the anterior bar was locked. Once cement was dry the tourniquet was deflated. Hemostasis was obtained. A dilute betadyne lavage was then done for 3 minutes. The joint was then irrigated with normal saline solution. The subvastus arthrotomy was then closed with #1 Vicryl suture. The skin was closed with 2-0 Vicryl, 3-0V lock suture, and dionisio. A Silverlon and a soft compressive dressing were placed. He was then transferred to a hospital bed and taken to the postanesthesia care unit in stable condition. He tolerated the procedure well. Keenan Chatman PA-C, was present for the entire procedure. He was critical for patient positioning, prepping, draping, retraction exposure, wound closure and application of sterile dressing. I attest to the content of the Intraoperative Record and any orders documented therein. Any exceptions are noted below.
--- NOTE | 2020-09-17 14:02 | XRay Report ---
XR knee LT 1 or 2V routine CLINICAL HISTORY: Postoperative evaluation. COMPARISON: Left knee radiographs August 10, 2020. FINDINGS: Alignment of the total left knee arthroplasty is anatomic. There is no periprosthetic frac ture or unexpected radiopaque foreign body. There are skin dionisio. IMPRESSION: Expected findings following total left knee arthroplasty. ACT 112: Negative or not required by law. Electronically signed by: Teo Dan M.D. 09/17/2020 2:01 PM
[2020-09-17] MEDS ORDERED: MAGNESIUM HYDROXIDE SUSP 30 ML UDC PO PRN (14:36)
[2020-09-17] MEDS ORDERED: ONDANSETRON INJ 2 MG/ML 2 ML VIAL IV PRN (14:36)
[2020-09-17] MEDS ORDERED: oxyCODONE HCL IR 5 MG TAB (IMMEDIATE RELEASE) PO PRN (14:36)
[2020-09-17] MEDS ORDERED: HYDROmorphone INJ 0.5 MG/0.5 ML SYR IV PRN (14:36)
[2020-09-17] MEDS ORDERED: METOCLOPRAMIDE HCL INJ 5 MG/ML 2 ML VIAL IV PRN (14:36)
[2020-09-17] MEDS ORDERED: bisacodyL 10 MG SUPP PR PRN (14:36)
[2020-09-17] MEDS ORDERED: NALOXONE HCL 0.4 MG/1 ML VIAL/CARP IV PRN (14:36)
--- NOTE | 2020-09-17 15:36 | Anesthesiology Progress Note ---
Date of Service September 17, 2020 Anesthesia Post Procedure Vital Signs Vital Signs: Temp Pulse Pulse Resp BP BP Pulse Ox 09/17/20 14:38 36.6 C 56 L 18 148/76 H 98 09/17/20 14:15 36.7 C 59 L 16 149/75 H 97 09/17/20 13:55 36.9 C 58 L 16 131/84 100 09/17/20 13:45 56 L 18 130/72 100 09/17/20 13:37 37.1 C 62 16 110/65 99 09/17/20 11:01 63 20 161/80 H 98 09/17/20 10:26 36.6 C 62 20 166/79 H 98 Transfer of Care Handoff Completed per policy Notes Mental Status: alert / awake / arousable and participated in evaluation Patient Amnestic to Procedure: Yes Nausea / Vomiting: adequately controlled Pain: adequately controlled Airway Patency, RR, SpO2: stable & adequate BP & HR: stable & adequate Hydration State: stable & adequate Neuraxial Anesthesia: was administered and sensory block is resolving Anesthetic Complications: no major complications apparent and Pt Satisfied with anesthetic care
[2020-09-17] MEDS: KETOROLAC 30 MG/ML VIAL IV SCH ×2 (17:46→21:16)
[2020-09-17] MEDS: SODIUM CHLORIDE 0.9% 1000ML 1,000 ML IV SCH (18:02)
[2020-09-17] MEDS: carvediloL 3.125 MG TAB PO SCH (18:03)
[2020-09-17] MEDS ORDERED: SENNA 8.6 MG TAB PO SCH (21:00)
[2020-09-17] MEDS: DOCUSATE SODIUM 100 MG CAP PO SCH (21:16)
[2020-09-17] MEDS: ceFAZolin 2000MG 2,000 MG/15 ML SYR IV SCH (21:16)
[2020-09-17] MEDS: ACETAMINOPHEN 500 MG TAB PO SCH (21:17)
[2020-09-17] MEDS: ASPIRIN 81 MG ECTAB PO SCH (21:17)
[2020-09-18] MEDS: ceFAZolin 2000MG 2,000 MG/15 ML SYR IV SCH (03:07)
[2020-09-18] MEDS: KETOROLAC 30 MG/ML VIAL IV SCH ×2 (03:11→08:30)
[2020-09-18] MEDS: SODIUM CHLORIDE 0.9% 1000ML 1,000 ML IV SCH (03:12)
[2020-09-18] MEDS: ACETAMINOPHEN 500 MG TAB PO SCH (06:19)
[2020-09-18 07:20] LABS: Hematocrit (blood only) 37.7 % (42-52); Hemoglobin 13.1 g/dL (14.0-18.0); Mean Corpuscular Hemoglobin 32.4 pg (25-34); Mean Corpuscular Hgb Conc 34.7 g/dL (32-36); Mean Corpuscular Volume 93.3 fL (80-100); Mean Platelet Volume 10.5 fL (7.4-10.4); Platelet Count 236 K/uL (130-400); RDW Standard Deviation 44.9 fL (36.4-46.3); Red Blood Count 4.04 M/uL (4.7-6.1); White Blood Count 18.69 K/uL (4.8-10.8)
[2020-09-18 07:44] LABS: BUN Creatinine Ratio 24.4 (10-20); Calcium 8.1 mg/dl (8.5-10.1); Creatinine Clr Calc Pharmacy 107.2 ml/min; Est GFR (African American) 110.4; Est GFR (Non-African American) 95.2; Potassium 3.3 mmol/L (3.5-5.1)
[2020-09-18] MEDS ORDERED: dexAMETHasone 4 MG TAB PO SCH (08:00)
--- NOTE | 2020-09-18 08:03 | Orthopedic Progress Note ---
Date of Service September 18, 2020 Assessment & Plan (1) Status post left knee replacement: Overall is doing very well. Is not having much pain in the left knee. He will be seen by physical therapy today for ambulation and range of motion exercises. He is on aspirin for DVT prophylaxis. He can be discharged home later today. He will follow-up with orthopedics in 2 weeks. Present on Admission?: Yes Admission and Anticipated Discharge Date Admission Date: September 17, 2020 Jean Etienne was seen and examined at bedside this morning. Overall he is doing well. Is not having much pain in the left knee. He has been up and ambulating to the bathroom. He has no complaints. Physical Exam 2 Physical Exam: On physical examination of the left knee, the dressing is clean and dry. His legs in full extension. He has active dorsiflexion plantarflexion of the left ankle. Sensations intact. Results & Data ([facility]) Vital Signs (Past 12 Hours) Vital Signs Temp Pulse Resp BP Pulse Ox 09/18/20 07:52 36.7 C 66 16 162/82 H 96 09/18/20 03:06 36.6 C 61 15 158/74 H 96 09/17/20 23:38 36.6 C 64 14 135/73 95 Laboratory Results H & H 08/23/20 09/18/20 Range/Units 15:32 07:01 Hgb 14.3 13.1 L (14.0-18.0) g/dL Hct 42.0 37.7 L (42-52) % Coagulation 08/23/20 Range/Units 15:32 INR 1.0 (0.9-1.1) Diagnostic Findings Postoperative x-rays of the left knee show the prosthesis to be in anatomic alignment without any evidence of fracture, dislocation, or loosening. PG Care Time/CCT Total # of Minutes Spent Total Time Spent with Patient: Total time spent is greater than 50% in coordination of care (as documented) at patient's floor/unit and/or counseling patient: Coding Level of Care Code None Diagnoses Status post left knee replacement Z96.652
--- NOTE | 2020-09-18 08:04 | Discharge Summary ---
Date of Service September 18, 2020 Admission HPI Per Admitting Provider Lowell is a pleasant 64-year-old male who is been dealing with chronic increasing left knee pain. X-rays and clinical examination have been diagnostic for advanced osteoarthritis of the left knee. After failing conservative treatment, he has elected proceed with a left total knee arthroplasty. He does have a history of a right knee replacement done in 2013 and has done well with that. Principal Diagnosis Left knee replacement Discharge Data Allergies Allergy/AdvReac Type Severity Reaction Status Date / Time No Known Allergies Allergy Verified 09/17/20 10:23 Consultations 09/17/20 14:36 Consult Case Management - Discharge Planning Routine Procedures Performed Operation Date: 09/17/20 12:05 Actual Procedures p Left Total Knee Arthroplasty, Cemented(Left) - Keenan Marmolejo DO Ordered Studies 09/17/20 05:00 US - OR guided needle placemen Routine Hospital Course (1) Status post left knee replacement: On September 17, 2020 Lowell arrived at [facility] and underwent a left knee replaced without complication. He had a spinal anesthetic. Postoperatively he was started on aspirin for DVT prophylaxis and transferred to the general orthopedic floors. His hospital course was uneventful. On postop day #1 his H&H was stable and his pain was well controlled. He was able to participate well with physical therapy doing ambulation and range of motion exercises. He was then discharged home. He will follow-up with orthopedics in 2 weeks. Total Time Total Time Spent Total Time Spent (In Minutes): 20 Discharge Plan Discharge Items Patient Disposition: Home - Home Health Services Reason For Visit: Left Knee Degenerative Joint Disease Discharge Diagnosis: Left knee replacement Activity: As commented below Non-emergency contact: Surgeon Call non-emergency contact if: your wound has increased redness and your wound has increased drainage Follow-up/Referrals: Annamaria Rudolph DO [Primary Care Provider] - Diet: Regular Addtl Attending Provider Instructions: Activity and Therapy Recommendations: * If you are using [facility] then therapy will be provided at your home until they feel you have accomplished all of your goals. * If you are using [facility] then Physical Therapy will be provided until they feel you are ready to start Outpatient Physical Therapy. * If you are not using home therapy then Outpatient Physical Therapy should start about 3-5 days from your day of surgery. Therapy will last about 6-10 weeks * It is important not to put a pillow under your knee when you are relaxing or sleeping. It is just as important to make sure you are getting your knee perfectly straight as it is to regain your knee bend. * You were shown a series of exercises in the hospital. Do these exercises three times each day including the exercises you were shown in physical therapy. * Get up and walk several times each day. For the first four weeks, try not to stand or walk for more than one hour at a time. If you do stand or walk for more than one hour, you will not hurt anything, but your leg will likely swell. * As you feel comfortable, you may change from the walker or crutches to a cane and then to independent walking. Medications: * Narcotic You will likely be sent home from the hospital with a prescription for the narcotic pain medication that worked best throughout your stay. * Aspirin Most patients will be required to take Aspirin 81mg twice a day for 6 weeks after surgery. This is obtained [id number] and a prescription is not necessary. * Other medications may be prescribed for specific circumstances. If you have any questions, please call the office at . * Resume previous home medications unless otherwise instructed TEDs/Elastic Stockings: The white elastic stockings help limit swelling and prevent blood clots from forming in your legs.~ The more you wear them, the more they work. Wear them for six weeks. Dressing Care: Leave the Silverlon dressing in place for 7 days. After 7 days you may remove the dressing. If the incision is not draining then you may leave the dionisio open to air. If there is a little bit of drainage or if the dionisio are getting stuck on your clothing then cover the incision with a dry dressing. The dionisio will be removed at your 2 week follow-up appointment. Showering: You may shower with the Silverlon dressing in place. Do not let the shower spray hit the dressing directly. Pat the Silverlon dressing dry. If the dressing becomes wet underneath, then simply remove the dressing. Keep the incision dry until you are 7 days out from the day of surgery. After 7 days you may remove the Silverlon dressing and shower with the dionisio exposed. Let soapy water run over the dionisio and pat them dry. Do not scrub or soak the incision. Things To Watch For: * Drainage from the incision site that occurs more than one week after your surgery. * Increased redness at the incision site. * Fever above 102 degrees Fahrenheit. * Unusual chest pain or shortness of breath. * Call [facility] at with any of the above problems Follow-Up Visit: Follow-up with Dr. Marmolejo's PA (Keenan Chatman) 2-3 weeks after your day of surgery. He will remove your dionisio and answer any questions. If you have any additional questions or concerns, Dr Marmolejo is usually in the office at the same time and will be available An appointment was probably scheduled when you signed-up for surgery in the office. If you have any questions call Office Instructions: More detailed instructions as well as Frequently Asked Questions were provided in a folder by our office when you signed-up for surgery. Please review these instructions when you get home. If you have any further questions or concerns, please feel free to call the office at [phone] Pending Studies at Discharge: No Stand-Alone Forms: [facility], Smoking Cessation Medications and DC Order Prescriptions: New oxycodone 5 mg Tablet 5 mg PO Q4H PRN (Reason: pain) Qty: 30 RF: 0 Continued amlodipine 10 mg Tablet 10 mg PO QAM RF: 0 atorvastatin 20 mg Tablet 20 mg PO QAM RF: 0 lisinopril 40 mg Tablet 40 mg PO QAM RF: 0 carvedilol 3.125 mg tablet 3.125 mg PO BID Qty: 60 RF: 5 multivitamin Tablet 1 tab PO QAM RF: 0 Changed aspirin 81 mg Tablet,Delayed Release (Dr/Ec) 81 mg PO BID Qty: 0 RF: 0 Discharge Orders: Discharge Order (Routine); Ordered 09/18/20 Ordered By: Keenan Marmolejo Admission Data Admit Date/Time: 09/17/20 13:40 Attending Provider: Keenan Marmolejo Admit Provider: Keenan Marmolejo Primary Care Provider: Annamaria Rudolph Coding Level of Care Code D/C Day Management <30 mins Diagnoses Status post left knee replacement Z96.652
[2020-09-18] MEDS: ASPIRIN 81 MG ECTAB PO SCH (08:28)
[2020-09-18] MEDS: carvediloL 3.125 MG TAB PO SCH (08:29)
[2020-09-18] MEDS: DOCUSATE SODIUM 100 MG CAP PO SCH (08:29)
[2020-09-18] MEDS ORDERED: amLODIPine BESYLATE 5 MG TAB PO SCH (09:00)
[2020-09-18] MEDS ORDERED: lisinopril 40 MG TAB PO SCH (09:00)
[2020-09-18] MEDS ORDERED: MULTIVITAMIN TAB PO SCH (09:00)
[2020-09-18] MEDS ORDERED: ATORVASTATIN 20 MG TAB PO SCH (09:00)
== END 2020-09-18 12:14 | disposition home health service (06) ==
LOC: ASU 09:50 → 3E 09:50
DX: E78.5 Hyperlipidemia, unspecified; Z96.651 Presence of right artificial knee joint; Z79.82 Long term (current) use of aspirin; M17.12 Unilateral primary osteoarthritis, left knee; I10 Essential (primary) hypertension; Z79.899 Other long term (current) drug therapy